=== PATIENT | male | born 1965 | race Caucasian/White ===

== ENCOUNTER → 2020-08-02 | Outpatient (CLI) | payer BC ==
--- NOTE | 2020-08-02 16:52 | REP ---
INDICATION: RT LEG PAIN ? ACHILLES TENDONITIS VS PLANTAR FASCIA. COMPARISON: None. TECHNIQUE: Multiple sequences are obtained in the axial, coronal and sagittal planes. FINDINGS: There is moderate ill-defined high signal edema on T2 weighted images in the soft tissues adjacent to the Achilles tendon compatible with peritendinitis. The, anterior tibial, posterior tibial, flexor hallucis longus, and flexor digitorum longus tendons are all intact without significant tenosynovitis. There is mild to moderate fluid surrounding the peroneal tendons above and below the distal end of the fibula suggesting tenosynovitis. The anterior and posterior talofibular, calcaneofibular and deltoid ligaments appear intact. Plantar tendon appears intact. There is no plantar fasciitis. Sinus tarsi appears unremarkable. No ganglion cyst is seen. There is normal amount of joint fluid. There is focal cartilaginous thinning in the distal end of the tibia centrally with an underlying subcortical cyst, heterogeneous in signal and measuring approximately 1 cm in diameter. No cartilaginous defect is seen along the talar dome. There is minor marrow edema in the posterosuperior calcaneus at the insertion site of the Achilles tendon.. There is minor marrow edema in the distal end of the tibia anteriorly and laterally. Anterior tibial spurring. Small subcortical cyst in the medial malleolus measures approximately 4 mm in diameter. IMPRESSION: Achilles peritendinitis. Mild reactive marrow edema at in the posterior calcaneus adjacent to the insertion of the Achilles tendon. [id number] fluid surrounding the peroneal tendons compatible with tenosynovitis. Focal cartilaginous thinning distal end of tibia centrally with underlying 1 cm heterogeneous subcortical cyst. Anterior tibial spurring with mild marrow edema in the anterolateral distal end of tibia, possibly indicating anterior impingement. There is a 4 mm subcortical cyst in the medial malleolus. <Electronically signed by Edu Lucas > 08/02/20 [id number]
== END ==
LOC: M PLARAD 14:38
PROVIDERS: ATTEND Physician Assistant
DX: M76.61 Achilles tendinitis, right leg (principal)